=== PATIENT | female | born 1995 | race Caucasian/White ===

== ENCOUNTER 2019-06-24 12:59 | Observation (INO) | payer MEDICAID, OTHER ==
[~2019-06-24] VITALS: Ht 170.2 cm; Wt 117.9 kg
== END 2019-06-24 16:15 | disposition home or self-care (01) ==
LOC: 8 EST LDRP 12:59
PROVIDERS: ADMIT Specialist; ATTEND Specialist
DX: O36.8330 Maternal care for abnormalities of the fetal heart rate or rhythm, third trimester, not applicable or unspecified (principal); O41.8X30 Other specified disorders of amniotic fluid and membranes, third trimester, not applicable or unspecified; O36.8130 Decreased fetal movements, third trimester, not applicable or unspecified; Z3A.39 39 weeks gestation of pregnancy
CPT/HCPCS: 76815; 76818; 99281; G0378

== ENCOUNTER 2019-07-05 21:51 | Inpatient (IN) | payer MEDICAID ==
[~2019-07-05] VITALS: Ht 170.2 cm; Wt 119.3 kg
[2019-07-05] MEDS ORDERED: DEXT 5%/LACTATED RINGERS 1,000 ML IV SCH (23:22)
[2019-07-05] MEDS: LACTATED RINGERS 1,000 ML IV SCH (23:50)
[2019-07-06] MEDS ORDERED: LIDOCAINE HCL 1% 20ML VIAL (Pyxis) INJ INFIL SCH (00:45)
[2019-07-06] MEDS ORDERED: BUTORPHANOL TARTRATE 2 MG/ML VIAL IV PRN (00:45)
[2019-07-06] MEDS: LACTATED RINGERS 1,000 ML IV SCH ×3 (01:13→19:36)
[2019-07-06 01:45] LABS: BASOPHILS % 0.3 % (0.0-2.0); HEMATOCRIT. 29.8 % (36.0-48.0); HEMOGLOBIN. 9.5 g/dL (12.0-16.0); LYMPHOCYTES % 24.3 % (20.0-50.0); MEAN CORPUSCULAR HEMOGLOBIN 24.1 pg (28.0-32.0); MEAN CORPUSCULAR VOLUME 75.4 fL (81.0-99.0); MEAN PLATELET VOLUME 9.6 fl (7.4-10.4); MONOCYTES % 5.2 % (2.0-8.0); NEUTROPHILS % 69.2 % (40.0-76.0); PLATELET 224 x1000/uL (130-400); RED BLOOD CELL COUNT 3.95 mill/uL (4.2-5.4); RED CELL DISTRIBUTION WIDTH 16.7 % (11.6-14.6)
[2019-07-06 01:45] LABS: CLARITY URINE CLOUDY (CLEAR); COLOR URINE YELLOW (YELLOW); KETONES URINE NEGATIVE (NEGATIVE); LEUKOCYTE ESTERASE URINE TRACE (NEGATIVE); NITRITE URINE NEGATIVE (NEGATIVE); OCCULT BLOOD URINE 1+ (NEGATIVE); PROTEIN URINE 3+ (NEGATIVE); SPECIFIC GRAVITY URINE 1.031 (1.005-1.030); UROBILINOGEN URINE 0.2 E.U./dL (0.2-1.0)
[2019-07-06 01:50] LABS: CHLORIDE 110 mEq/L (98-107)
[2019-07-06 01:56] LABS: *AMPHETAMINES SCREEN URINE NEGATIVE (NEGATIVE)
[2019-07-06 01:57] LABS: *BARBITURATES SCREEN URINE NEGATIVE (NEGATIVE); *BENZODIAZEPINES SCREEN URINE NEGATIVE (NEGATIVE); *COCAINE SCREEN URINE NEGATIVE (NEGATIVE); METHADONE URINE SCREEN NEGATIVE (NEGATIVE); OPIATES URINE SCREEN NEGATIVE (NEGATIVE); PHENCYCLIDINE URINE SCREEN NEGATIVE (NEGATIVE)
[2019-07-06 01:58] LABS: CANNABINOID URINE SCREEN NEGATIVE (NEGATIVE)
[2019-07-06 02:07] LABS: D-DIMER 3.56 mg/L FEU (<0.50); INR 0.9; PARTIAL THROMBOPLASTIN TIME 27.7 sec (23.4-31.0); PROTHROMBIN TIME 9.3 sec (9.6-11.0)
[2019-07-06] MEDS: MAGNESIUM 20 G PREMIX (L & D) 500 ML IV SCH ×2 (02:07→19:40)
[2019-07-06] MEDS ORDERED: ROPIVACAINE HCL/PF EPIDURAL 200 ML EPI SCH (08:15)
[2019-07-06] MEDS: DEXT 5%/LR + PITOCIN 20UNITS/L 1,000 ML IV SCH (09:39)
[2019-07-06] MEDS ORDERED: LIDOCAINE HCL 2%/EPINEPHRINE 1:100,000 20 ML VIAL INFIL ONE (11:37)
[2019-07-06 13:06] LABS: HEPATITIS B SURFACE ANTIGEN NEGATIVE
[2019-07-06] MEDS ORDERED: HYDRALAZINE 20MG/ML VIAL IV PRN (18:30)
[2019-07-06] MEDS ORDERED: LABETALOL HCL 5MG/ML VIAL 20ML IV PRN ×3 (18:30)
[2019-07-06] MEDS ORDERED: PENICILLIN G POTASSIUM 5 MMU in DEXT 5% WATER 100 ML IV NR (21:15)
[2019-07-07] MEDS: PENICILLIN G POTASSIUM 2.5 MMU in DEXTROSE 5% WATER 50 ML IV SCH ×5 (00:49→17:00)
[2019-07-07] MEDS ORDERED: ROPIVACAINE HCL/PF EPIDURAL 200 ML EPI ONE ×2 (03:20→15:19)
[2019-07-07] MEDS ORDERED: FENTANYL CITRATE/PF 50MCG/ML 2ML VIAL ONE ×2 (03:47→12:37)
[2019-07-07] MEDS ORDERED: MORPHINE SULFATE/PF 1MG/ML 10ML AMP ONE (03:47)
[2019-07-07] MEDS ORDERED: LACTATED RINGERS 1,000 ML IV SCH (05:45)
[2019-07-07] MEDS: MAGNESIUM 20 G PREMIX (L & D) 500 ML IV SCH ×2 (06:09→23:44)
[2019-07-07] MEDS: DEXT 5%/LR + PITOCIN 20UNITS/L 1,000 ML IV SCH (13:42)
[2019-07-07] MEDS ORDERED: LIDOCAINE HCL 2%/EPINEPHRINE 1:100,000 20 ML VIAL INFIL ONE ×2 (15:00→20:00)
[2019-07-07] MEDS ORDERED: DEXT 5%/LR + PITOCIN 20UNITS/L 1,000 ML IV SCH (22:49)
[2019-07-07] MEDS ORDERED: MAGNESIUM 20 G PREMIX (L & D) 500 ML IV SCH (22:49)
[2019-07-07] MEDS ORDERED: HEMORRHOIDAL SUPP PR PRN (23:00)
[2019-07-07] MEDS ORDERED: IBUPROFEN 800MG TABLET PO PRN (23:00)
[2019-07-07] MEDS ORDERED: DIPHENHYDRAMINE 25MG CAPSULE PO PRN (23:00)
[2019-07-07] MEDS ORDERED: OXYTOCIN 10 UNITS/ML 1ML ONE (23:00)
[2019-07-07] MEDS ORDERED: CARBOPROST TROMETHAMINE 250 MCG/ML AMPUL IM ONE (23:00)
[2019-07-07] MEDS ORDERED: GLYCERIN/WITCH HAZEL LEAF MEDICATED PAD TOP PRN (23:00)
[2019-07-07] MEDS ORDERED: BISACODYL 10MG SUPP PR PRN (23:00)
[2019-07-07] MEDS ORDERED: RHO(D) IMMUNE GLOBULIN 300 MCG/SYR IM PRN (23:00)
[2019-07-07] MEDS ORDERED: ACETAMINOPHEN WITH CODEINE 300/30MG TABLET PO PRN (23:00)
[2019-07-07] MEDS ORDERED: MISOPROSTOL 200MCG TABLET ONE (23:00)
[2019-07-07] MEDS ORDERED: BENZOCAINE/LANOLIN/ALOE VERA SPRAY TOP PRN (23:00)
[2019-07-07] MEDS ORDERED: IBUPROFEN 400MG TABLET PO PRN (23:00)
[2019-07-07] MEDS ORDERED: LANOLIN OINT 7GM TUBE TOP PRN (23:00)
[2019-07-08] VITALS (8 sets, daily range): BP systolic 119–153; BP diastolic 70–97
[2019-07-08 07:28] LABS: BASOPHILS % 0.1 % (0.0-2.0); HEMATOCRIT. 22.4 % (36.0-48.0); HEMOGLOBIN. 7.1 g/dL (12.0-16.0); MEAN CORPUSCULAR HEMOGLOBIN 23.6 pg (28.0-32.0); MEAN CORPUSCULAR VOLUME 74.5 fL (81.0-99.0); MEAN PLATELET VOLUME 9.1 fl (7.4-10.4); MONOCYTES % 6.9 % (2.0-8.0); PLATELET 179 x1000/uL (130-400); RED BLOOD CELL COUNT 3.01 mill/uL (4.2-5.4); RED CELL DISTRIBUTION WIDTH 17.1 % (11.6-14.6)
[2019-07-08] MEDS: MAGNESIUM/ALUMINUM HYDROXIDE/SIMETHICONE 30ML UDC PO SCH ×2 (08:59→13:03)
[2019-07-08] MEDS: FERROUS SULFATE 325MG TABLET PO SCH ×3 (08:59→16:31)
[2019-07-08] MEDS: PRENATAL VIT/FE FUMARATE/FA TABLET PO SCH (08:59)
[2019-07-08] MEDS: LABETALOL HCL 200MG TABLET PO SCH ×2 (08:59→16:32)
[2019-07-08] MEDS ORDERED: LABETALOL HCL 200MG TABLET PO SCH (09:00)
[2019-07-08] MEDS ORDERED: INFLUENZA VIRUS VACCINE(AFLURIA) 0.5ML SYR IM ONE (10:00)
[2019-07-08] MEDS: SIMETHICONE 80MG TABLET CHEW PO SCH ×3 (13:03→21:22)
[2019-07-08] MEDS ORDERED: DOCUSATE SODIUM 100MG CAPSULE PO SCH (21:00)
[2019-07-09] VITALS: BP 113/70
[2019-07-09] MEDS: LABETALOL HCL 200MG TABLET PO SCH ×2 (00:05→09:36)
[2019-07-09] MEDS ORDERED: TETANUS, DIPHTHERIA, PERTUSSIS VAC/PF 0.5ML (>7YR OLD) IM ONE (03:00)
[2019-07-09 04:50] VITALS: BP 119/67
[2019-07-09] MEDS ORDERED: FERR324T4 MT (05:35)
[2019-07-09] MEDS ORDERED: IBUP-2029 MT (05:35)
[2019-07-09] MEDS ORDERED: MULT1TAB67 MT (05:35)
[2019-07-09 08:50] VITALS: BP 121/75
[2019-07-09] MEDS: SIMETHICONE 80MG TABLET CHEW PO SCH (09:35)
[2019-07-09] MEDS: PRENATAL VIT/FE FUMARATE/FA TABLET PO SCH (09:36)
[2019-07-09] MEDS: MAGNESIUM/ALUMINUM HYDROXIDE/SIMETHICONE 30ML UDC PO SCH (09:37)
[2019-07-13] MEDS ORDERED: AMLO5TAB88 PO (14:39)
== END 2019-07-09 11:05 | disposition home or self-care (01) | DRG 560 ==
LOC: 8 EST LDRP 21:51 → OBSVTOIN 21:51 → 8EST 07-08 00:10
PROVIDERS: ADMIT Specialist; ATTEND Specialist
PROC: 10E0XZZ Delivery of Products of Conception, External Approach (ICD-10-PCS; principal; 2019-07-07)
PROC: 0W8NXZZ Division of Female Perineum, External Approach (ICD-10-PCS; 2019-07-07)
PROC: 3E0R3BZ Introduction of Anesthetic Agent into Spinal Canal, Percutaneous Approach (ICD-10-PCS; 2019-07-07)
PROC: 00HU33Z Insertion of Infusion Device into Spinal Canal, Percutaneous Approach (ICD-10-PCS; 2019-07-07)
DX: O14.04 Mild to moderate pre-eclampsia, complicating childbirth (principal); O36.60X0 Maternal care for excessive fetal growth, unspecified trimester, not applicable or unspecified; O48.0 Post-term pregnancy; O69.81X0 Labor and delivery complicated by cord around neck, without compression, not applicable or unspecified; Z37.0 Single live birth; Z3A.40 40 weeks gestation of pregnancy
CPT/HCPCS: 36415; 80305; 81003; 83735; 84550; 85379; 85384; 86592; 86703; 86762; 86850; 86900; 87340; 90686; 90715; 99281; G0378; J2274; J2540; J2590; J2795; J3010; J3475; J3490; J7060; J7120; J7121